=== PATIENT | female | born 1970 | race Caucasian/White ===

== ENCOUNTER → 2017-11-16 | Outpatient (CLI) | payer OTHER | END | disposition home or self-care (01) | LOC: ECT 11:17 | DX: F31.4 Bipolar disorder, current episode depressed, severe, without psychotic features (principal); M79.7 Fibromyalgia; R45.851 Suicidal ideations ==

== ENCOUNTER 2017-11-30 06:47 | Outpatient (RCR) | payer OTHER ==
[2017-11-30] VITALS (7 sets, daily range): BP systolic 109–132; BP diastolic 58–69
[~2017-11-30] VITALS: Ht 167.6 cm; Wt 107.0 kg
[2017-11-30] MEDS ORDERED: Ketorolac 60mg Inj ONE (06:48)
[2017-11-30] MEDS ORDERED: NS 500ML ONE (06:48)
[2017-11-30] MEDS ORDERED: Excedrin Migraine tab ONE (06:48)
[2017-11-30] MEDS ORDERED: Midazolam 2mg/2ml Inj ONE (06:48)
[2017-11-30] MEDS ORDERED: Succinylcholine 20mg/ml 10ml vial ONE (06:48)
[2017-11-30] MEDS ORDERED: Methohexital Sodium Syr 100mg/10ml IVP ONE (06:48)
[2017-11-30] MEDS ORDERED: Sodium Chloride 500ML 500 ML IV ONE (11:53)
[2017-11-30] MEDS ORDERED: Atropine Sulfate 0.4mg/ml inj IVP PRN (11:53)
[2017-11-30] MEDS ORDERED: Excedrin Migraine tab ORAL PRN (11:53)
[2017-11-30] MEDS ORDERED: Ketorolac 60mg Inj IV ONE (11:53)
[2017-12-02] MEDS ORDERED: NS 500ML ONE (08:00)
[2017-12-02] MEDS ORDERED: Excedrin Migraine tab ONE (08:00)
[2017-12-02] MEDS ORDERED: Midazolam 2mg/2ml Inj ONE (08:00)
[2017-12-02] MEDS ORDERED: Succinylcholine 20mg/ml 10ml vial ONE (08:00)
[2017-12-02] MEDS ORDERED: Methohexital Sodium Syr 100mg/10ml IVP ONE (08:00)
[2017-12-02] MEDS ORDERED: Ketorolac 60mg Inj ONE (08:00)
[2017-12-02 11:09] VITALS: BP 123/86
[2017-12-02] MEDS ORDERED: Excedrin Migraine tab ORAL PRN (11:28)
[2017-12-02] MEDS ORDERED: Sodium Chloride 500ML 500 ML IV ONE (11:28)
[2017-12-02 11:30] VITALS: BP 132/87
[2017-12-02 11:35] VITALS: BP 133/83
[2017-12-02 11:40] VITALS: BP 117/54
[2017-12-02 11:45] VITALS: BP 104/56
[2017-12-04] MEDS ORDERED: Ketorolac 60mg Inj ONE (07:00)
[2017-12-04] MEDS ORDERED: Methohexital Sodium Syr 100mg/10ml IVP ONE (07:00)
[2017-12-04] MEDS ORDERED: NS 500ML ONE (07:00)
[2017-12-04] MEDS ORDERED: Succinylcholine 20mg/ml 10ml vial ONE (07:00)
[2017-12-04] MEDS ORDERED: Excedrin Migraine tab ONE (07:00)
[2017-12-04] MEDS ORDERED: Midazolam 2mg/2ml Inj ONE (07:00)
[2017-12-04 10:19] VITALS: BP 107/66
[2017-12-04] MEDS ORDERED: Sodium Chloride 500ML 500 ML IV ONE (10:32)
[2017-12-04 10:35] VITALS: BP 109/51
[2017-12-04 10:40] VITALS: BP 107/59
[2017-12-04 10:45] VITALS: BP 110/46
[2017-12-07] MEDS ORDERED: Midazolam 2mg/2ml Inj ONE (06:00)
[2017-12-07] MEDS ORDERED: Excedrin Migraine tab ONE (06:00)
[2017-12-07] MEDS ORDERED: Succinylcholine 20mg/ml 10ml vial ONE (06:00)
[2017-12-07] MEDS ORDERED: Ketorolac 60mg Inj ONE (06:00)
[2017-12-07] MEDS ORDERED: NS 500ML ONE (06:00)
[2017-12-07] MEDS ORDERED: Methohexital Sodium Syr 100mg/10ml IVP ONE (06:00)
[2017-12-07 09:00] VITALS: BP 111/69
[2017-12-07] MEDS ORDERED: Excedrin Migraine tab ORAL PRN (09:10)
[2017-12-07] MEDS ORDERED: Sodium Chloride 500ML 500 ML IV ONE (09:10)
[2017-12-07 09:15] VITALS: BP 111/69
[2017-12-07 09:25] VITALS: BP 116/46
[2017-12-07 09:30] VITALS: BP 115/50
[2017-12-09] MEDS ORDERED: Sodium Chloride 500ML 500 ML IV ONE (05:30)
[2017-12-09] MEDS ORDERED: Excedrin Migraine tab ORAL PRN (05:30)
[2017-12-09] MEDS ORDERED: Ketorolac 60mg Inj ONE (06:00)
[2017-12-09] MEDS ORDERED: Methohexital Sodium Syr 100mg/10ml IVP ONE (06:00)
[2017-12-09] MEDS ORDERED: NS 500ML ONE (06:00)
[2017-12-09] MEDS ORDERED: Excedrin Migraine tab ONE (06:00)
[2017-12-09] MEDS ORDERED: Succinylcholine 20mg/ml 10ml vial ONE (06:00)
[2017-12-09] MEDS ORDERED: Midazolam 2mg/2ml Inj ONE (06:00)
[2017-12-09 09:34] VITALS: BP 132/80
[2017-12-09 09:50] VITALS: BP 145/59
[2017-12-09 09:55] VITALS: BP 111/64
[2017-12-09 10:00] VITALS: BP 113/68
[2017-12-09 10:05] VITALS: BP 118/66
[2017-12-11] MEDS ORDERED: Midazolam 2mg/2ml Inj ONE (08:00)
[2017-12-11] MEDS ORDERED: Excedrin Migraine tab ONE (08:00)
[2017-12-11] MEDS ORDERED: Ketorolac 60mg Inj ONE (08:00)
[2017-12-11] MEDS ORDERED: Succinylcholine 20mg/ml 10ml vial ONE (08:00)
[2017-12-11] MEDS ORDERED: Methohexital Sodium Syr 100mg/10ml IVP ONE (08:00)
[2017-12-11] MEDS ORDERED: NS 500ML ONE (08:00)
[2017-12-11 08:46] VITALS: BP 111/77
[2017-12-11 09:00] VITALS: BP 159/85
[2017-12-11] MEDS ORDERED: Excedrin Migraine tab ORAL PRN (09:00)
[2017-12-11] MEDS ORDERED: Sodium Chloride 500ML 500 ML IV ONE (09:00)
[2017-12-11 09:05] VITALS: BP 119/55
[2017-12-11 09:10] VITALS: BP 111/76
[2017-12-11 09:15] VITALS: BP 104/55
[2017-12-14] MEDS ORDERED: Methohexital Sodium Syr 100mg/10ml IVP ONE (07:00)
[2017-12-14] MEDS ORDERED: Ketorolac 60mg Inj ONE (07:00)
[2017-12-14] MEDS ORDERED: Excedrin Migraine tab ONE (07:00)
[2017-12-14] MEDS ORDERED: Midazolam 2mg/2ml Inj ONE (07:00)
[2017-12-14] MEDS ORDERED: NS 500ML ONE (07:00)
[2017-12-14] MEDS ORDERED: Succinylcholine 20mg/ml 10ml vial ONE (07:00)
[2017-12-14 09:14] VITALS: BP 119/75
[2017-12-14] MEDS ORDERED: Sodium Chloride 500ML 500 ML IV ONE (09:38)
[2017-12-14] MEDS ORDERED: Atropine Sulfate 0.4mg/ml inj IVP PRN (09:38)
[2017-12-14 09:40] VITALS: BP 119/68
[2017-12-14 09:45] VITALS: BP 120/66
[2017-12-14 09:50] VITALS: BP 118/78
[2017-12-14 09:55] VITALS: BP 129/83
[2017-12-18] MEDS ORDERED: Midazolam 2mg/2ml Inj ONE (08:00)
[2017-12-18] MEDS ORDERED: Ketorolac 60mg Inj ONE (08:00)
[2017-12-18] MEDS ORDERED: NS 500ML ONE (08:00)
[2017-12-18] MEDS ORDERED: Excedrin Migraine tab ONE (08:00)
[2017-12-18] MEDS ORDERED: Methohexital Sodium Syr 100mg/10ml IVP ONE (08:00)
[2017-12-18] MEDS ORDERED: Succinylcholine 20mg/ml 10ml vial ONE (08:00)
[2017-12-18 08:27] VITALS: BP 113/59
[2017-12-18] MEDS ORDERED: Sodium Chloride 500ML 500 ML IV ONE (08:48)
[2017-12-18] MEDS ORDERED: Atropine Sulfate 0.4mg/ml inj IVP PRN (08:48)
[2017-12-18 08:50] VITALS: BP 100/48
[2017-12-18 08:55] VITALS: BP 98/48
[2017-12-18 09:00] VITALS: BP 95/28
[2017-12-18 09:05] VITALS: BP 111/81
== END 2017-12-19 | disposition home or self-care (01) ==
LOC: ECT 06:47
DX: F31.4 Bipolar disorder, current episode depressed, severe, without psychotic features (principal)
CPT/HCPCS: 90870; J0330; J2250; J7040

== ENCOUNTER 2017-12-25 05:29 | Outpatient (RCR) | payer OTHER ==
[~2017-12-25] VITALS: Ht 167.6 cm; Wt 107.0 kg
[2017-12-25] MEDS ORDERED: Midazolam 2mg/2ml Inj ONE ×2 (05:30)
[2017-12-25] MEDS ORDERED: Methohexital Sodium Syr 100mg/10ml IVP ONE ×2 (05:30)
[2017-12-25] MEDS ORDERED: Excedrin Migraine tab ONE ×2 (05:30)
[2017-12-25] MEDS ORDERED: Ketorolac 60mg Inj ONE ×2 (05:30)
[2017-12-25] MEDS ORDERED: NS 500ML ONE ×2 (05:30)
[2017-12-25] MEDS ORDERED: Succinylcholine 20mg/ml 10ml vial ONE ×2 (05:30)
[2017-12-25 08:08] VITALS: BP 129/73
[2017-12-25] MEDS ORDERED: Sodium Chloride 500ML 500 ML IV ONE (08:58)
[2017-12-25] MEDS ORDERED: Excedrin Migraine tab ORAL PRN (08:58)
[2017-12-25 09:00] VITALS: BP 139/85
[2017-12-25 09:05] VITALS: BP 131/64
[2017-12-25 09:10] VITALS: BP 131/80
[2017-12-25 09:15] VITALS: BP 118/59
[2018-01-08 07:40] VITALS: BP 123/77
[2018-01-08 08:08] VITALS: BP 123/53
[2018-01-08] MEDS ORDERED: Atropine Sulfate 0.4mg/ml inj IVP PRN (08:08)
[2018-01-08] MEDS ORDERED: Sodium Chloride 500ML 500 ML IV ONE (08:08)
[2018-01-08] MEDS ORDERED: Excedrin Migraine tab ORAL PRN (08:08)
[2018-01-08 08:13] VITALS: BP 111/50
[2018-01-08 08:18] VITALS: BP 123/60
[2018-01-08 08:23] VITALS: BP 120/66
== END 2018-01-18 | disposition home or self-care (01) ==
LOC: ECT 05:29
DX: F31.4 Bipolar disorder, current episode depressed, severe, without psychotic features (principal)
CPT/HCPCS: 82962; 90870; J0330; J2250; J7040

== ENCOUNTER 2018-01-25 06:56 | Outpatient (RCR) | payer OTHER ==
[~2018-01-25] VITALS: Ht 167.6 cm; Wt 107.4 kg
[2018-01-25] MEDS ORDERED: Excedrin Migraine tab ONE (06:57)
[2018-01-25] MEDS ORDERED: Succinylcholine 20mg/ml 10ml vial ONE (06:57)
[2018-01-25] MEDS ORDERED: Midazolam 2mg/2ml Inj ONE (06:57)
[2018-01-25] MEDS ORDERED: NS 500ML ONE (06:57)
[2018-01-25] MEDS ORDERED: Ketorolac 60mg Inj ONE (06:57)
[2018-01-25] MEDS ORDERED: Methohexital Sodium Syr 100mg/10ml IVP ONE (06:57)
[2018-01-25 08:03] VITALS: BP 140/88
[2018-01-25] MEDS ORDERED: Sodium Chloride 500ML 500 ML IV ONE (08:18)
[2018-01-25] MEDS ORDERED: Excedrin Migraine tab ORAL PRN (08:18)
[2018-01-25 08:20] VITALS: BP 123/64
[2018-01-25 08:25] VITALS: BP 125/64
[2018-01-25 08:30] VITALS: BP 134/58
[2018-01-25 08:35] VITALS: BP 117/63
[2018-02-01] MEDS ORDERED: Ketorolac 60mg Inj ONE (07:00)
[2018-02-01] MEDS ORDERED: NS 500ML ONE (07:00)
[2018-02-01] MEDS ORDERED: Midazolam 2mg/2ml Inj ONE (07:00)
[2018-02-01] MEDS ORDERED: Succinylcholine 20mg/ml 10ml vial ONE (07:00)
[2018-02-01] MEDS ORDERED: Methohexital Sodium Syr 100mg/10ml IVP ONE (07:00)
[2018-02-01] MEDS ORDERED: Excedrin Migraine tab ONE (07:00)
[2018-02-01 08:17] VITALS: BP 124/87
[2018-02-01] MEDS ORDERED: Atropine Sulfate 0.4mg/ml inj IVP PRN (08:38)
[2018-02-01] MEDS ORDERED: Sodium Chloride 500ML 500 ML IV ONE (08:38)
[2018-02-01] MEDS ORDERED: Excedrin Migraine tab ORAL PRN (08:38)
[2018-02-01 08:40] VITALS: BP 125/58
[2018-02-01 08:45] VITALS: BP 117/53
[2018-02-01 08:50] VITALS: BP 106/49
[2018-02-01 08:55] VITALS: BP 112/58
[2018-02-08] MEDS ORDERED: Succinylcholine 20mg/ml 10ml vial ONE (07:00)
[2018-02-08] MEDS ORDERED: Methohexital Sodium Syr 100mg/10ml IVP ONE (07:00)
[2018-02-08] MEDS ORDERED: Excedrin Migraine tab ONE (07:00)
[2018-02-08] MEDS ORDERED: NS 500ML ONE (07:00)
[2018-02-08] MEDS ORDERED: Midazolam 2mg/2ml Inj ONE (07:00)
[2018-02-08] MEDS ORDERED: Ketorolac 60mg Inj ONE (07:00)
[2018-02-08 08:25] VITALS: BP 135/88
[2018-02-08] MEDS ORDERED: Sodium Chloride 500ML 500 ML IV ONE (08:41)
[2018-02-08] MEDS ORDERED: Excedrin Migraine tab ORAL PRN (08:41)
[2018-02-08 08:45] VITALS: BP 135/88
[2018-02-08 08:50] VITALS: BP 124/84
[2018-02-08 08:55] VITALS: BP 137/85
[2018-02-08 09:00] VITALS: BP 125/73
== END 2018-02-18 | disposition home or self-care (01) ==
LOC: ECT 06:56
DX: F31.4 Bipolar disorder, current episode depressed, severe, without psychotic features (principal)
CPT/HCPCS: 90870; J0330; J2250; J7040

== ENCOUNTER 2018-02-22 04:46 | Outpatient (RCR) | payer OTHER ==
[~2018-02-22] VITALS: Ht 167.6 cm; Wt 107.4 kg
[2018-03-01] MEDS ORDERED: Ketorolac 60mg Inj ONE (06:00)
[2018-03-01] MEDS ORDERED: Midazolam 2mg/2ml Inj ONE (06:00)
[2018-03-01] MEDS ORDERED: Succinylcholine 20mg/ml 10ml vial ONE (06:00)
[2018-03-01] MEDS ORDERED: NS 500ML ONE (06:00)
[2018-03-01] MEDS ORDERED: Excedrin Migraine tab ONE (06:00)
[2018-03-01] MEDS ORDERED: Methohexital Sodium Syr 100mg/10ml IVP ONE (06:00)
[2018-03-01 09:04] VITALS: BP 126/75
[2018-03-01] MEDS ORDERED: Sodium Chloride 500ML 500 ML IV ONE (09:33)
[2018-03-01] MEDS ORDERED: Atropine Sulfate 0.4mg/ml inj IVP PRN (09:33)
[2018-03-01] MEDS ORDERED: Excedrin Migraine tab ORAL PRN (09:33)
[2018-03-01 09:35] VITALS: BP 124/46
[2018-03-01 09:40] VITALS: BP 122/57
[2018-03-01 09:45] VITALS: BP 113/56
[2018-03-01 09:50] VITALS: BP 103/55
== END 2018-03-20 | disposition home or self-care (01) ==
LOC: ECT 04:46
DX: F31.4 Bipolar disorder, current episode depressed, severe, without psychotic features (principal)
CPT/HCPCS: 90870; J0330; J2250; J7040